=== PATIENT | male | born 1960 | race Two or more races ===

== ENCOUNTER 2019-10-11 13:30 | Emergency (ER) | payer OTHER ==
[~2019-10-11] VITALS: Ht 165.1 cm; Wt 93.0 kg
[2019-10-11 13:42] VITALS: BP 158/94
== END 2019-10-11 14:12 | disposition home or self-care (01) ==
LOC: ER 13:34
DX: M24.512 Contracture, left shoulder (principal)

== ENCOUNTER 2021-05-05 19:20 | Emergency (ER) | payer BC, OTHER ==
[~2021-05-05] VITALS: Ht 165.1 cm; Wt 86.2 kg
--- NOTE | 2021-05-05 19:30 | NUR ---
PT BIBS FOR C/O MID STERNAL CP RATES PAIN 8/10 WITH COMPLAINTS OF HAVING A FEVER, N/V/D SINCE AM. PT TOOK UNKNOWN DOSE OF TYLENOL 3HRS [employer], +SOB, -COUGH. PT ALERT AND ORIENTED X4 AND AMBULATORY, WITH SPONTANEOUS NON LABORED BREATHING.
--- NOTE | 2021-05-05 19:35 | NUR ---
BLOOD AND URINE COLLECTED AND SENT TO LAB.
[2021-05-05] MEDS ORDERED: ACETAMINOPHEN ES 500 MG TABLET ONE (19:40)
--- NOTE | 2021-05-05 19:40 | NUR ---
COVID & INFLUENZA SWAB DONE AND SENT TO LAB.
[2021-05-05 19:52] LABS: BASOPHILS % (AUTO) 0.3 % (0.0-2.0); EOSINOPHILS % (AUTO) 0.3 % (0.0-6.0); HEMATOCRIT 46 % (39-51); HEMOGLOBIN 15.4 g/dL (13.5-17.5); LYMPHOCYTES # (AUTO) 0.9 K/uL (0.8-4.8); LYMPHOCYTES % (AUTO) 5.8 % (20.0-44.0); MEAN CORPUSCULAR HGB CONC 33 g/dl (31.0-36.0); MEAN CORPUSCULAR VOLUME 93 fL (80-96); MONOCYTES # (AUTO) 0.6 K/uL (0.1-1.30); MONOCYTES % (AUTO) 4.3 % (2.0-12.0); NEUTROPHILS # (AUTO) 13.2 K/uL (1.8-8.9); NEUTROPHILS % (AUTO) 89.3 % (43.0-81.0); PLATELET COUNT (AUTO) 287 K/uL (150-450); RED BLOOD CELL COUNT(AUTO) 4.96 MIL/uL (4.5-6.0); WHITE BLOOD COUNT (AUTO) 14.8 K/uL (4.3-11.0)
[2021-05-05] MEDS ORDERED: ACETAMINOPHEN ES 500 MG TABLET PO ONE (20:00)
[2021-05-05 20:03] LABS: CALCIUM, SERUM 8.7 mg/dL (8.5-10.1); CARBON DIOXIDE 25 mmol/L (21-32); CHLORIDE 103 mmol/L (98-107); CREATININE 1.3 mg/dL (0.6-1.3); GLUCOSE 138 mg/dL (74-106); POTASSIUM 3.6 mmol/L (3.5-5.1); SODIUM SERUM 139 mmol/L (136-145); UREA NITROGEN, BLOOD 16 mg/dL (7-18)
[2021-05-05 20:09] LABS: ALANINE AMINOTRANSFERASE 47 U/L (12-78); ALBUMIN 3.8 g/dL (3.4-5.0); ALKALINE PHOSPHATASE 66 U/L (46-116); ASPARTATE AMINOTRANSFERASE 21 U/L (15-37); BILIRUBIN,TOTAL 0.5 mg/dL (0.2-1.0); TOTAL PROTEIN, SERUM 7.9 g/dL (6.4-8.2)
--- NOTE | 2021-05-05 20:16 | NUR ---
PT STATES "PAIN DECREASED TO 4/10".
[2021-05-05 20:29] LABS: BILIRUBIN,URINE Negative (NEGATIVE); COLOR,URINE YELLOW (YELLOW); LEUKOCYTE ESTERASE ,URINE Negative (NEGATIVE); NITRITE, URINE Negative (NEGATIVE); PH,URINE 5.5 (5.0-8.0); PROTEIN,URINE 30 mg/dl (NEGATIVE); UGLUCOSE Negative (NEGATIVE); UROBILINOGEN,URINE 0.2 EU/dL (0.2)
[2021-05-05 20:30] LABS: BACTERIA,URINE Rare /HPF (None Seen); RBC,URINE NONE SEEN /HPF (0-2); SQUAMOUS EPITHELIAL CELL,UR Few /HPF (None Seen); WBC,URINE NONE SEEN /HPF (0-3)
[2021-05-05] MEDS ORDERED: PIPERACILLIN /TAZOBACTAM 3.375 G in IV D5W 50 ML IV ONE (20:30)
[2021-05-05] MEDS ORDERED: IV NS 0.9% 1,000 ML BAG IV ONE (20:30)
[2021-05-05] MEDS ORDERED: PIPERACILLIN /TAZOBACTAM 3.375 G VIAL IV ONE (20:36)
--- NOTE | 2021-05-05 20:42 | NUR ---
PT WENT TO CT.
--- NOTE | 2021-05-05 20:47 | NUR ---
PT RETURNED FROM CT.
[2021-05-05 20:51] LABS: BILIRUBIN,DIRECT 0.1 mg/dL (0.0-0.2)
--- NOTE | 2021-05-05 21:00 | NUR ---
per lab, lactic 2.9
[2021-05-05 21:14] LABS: CREATINE KINASE, TOTAL 107 U/L (39-308); FERRITIN 199 ng/mL (8-388)
[2021-05-05] MEDS ORDERED: IBUP-1957 PO (21:34)
[2021-05-05] MEDS ORDERED: AMOX-430 PO (21:34)
[2021-05-05 21:48] VITALS: BP 147/80
--- NOTE | 2021-05-05 21:50 | NUR ---
Patient discharged to home in stable condition. Written and verbal after care instructions given. Patient verbalizes understanding of instruction and RX. Ambulated out of ED. VSS. IV removed. Catheter intact and site benign. Pressure and 4x4 applied to site. No bleeding noted.
== END 2021-05-05 21:51 | disposition home or self-care (01) ==
LOC: ER 19:24
DX: K52.9 Noninfective gastroenteritis and colitis, unspecified (principal); R50.9 Fever, unspecified; Z20.822 Contact with and (suspected) exposure to COVID-19; E87.2 Acidosis; M47.896 Other spondylosis, lumbar region
CPT/HCPCS: 36415; 71045; 74176; 80053; 81001; 82248; 82550; 82728; 83605 ×2; 83615; 84145; 84484; 85025; 85378; 87040 ×2; 87426; 87804; 93005; 96365; 99285; C9803 ×2; J2543; J7030; J7060; U0003

== ENCOUNTER 2022-06-24 15:09 | Emergency (ER) | payer BC ==
[~2022-06-24] VITALS: Ht 165.1 cm; Wt 85.7 kg
[~2022-06-24 15:09] MED LIST: AMOX-430 PO; IBUP-1957 PO
[2022-06-24] MEDS ORDERED: ACETAMINOPHEN ES 500 MG TABLET PO ONE (16:00)
--- NOTE | 2022-06-24 16:01 | NUR ---
20g started in RFA blood drawn and sent to lab saline lock initated
[2022-06-24 16:09] LABS: BASOPHILS # (AUTO) 0.1 K/uL (0.0-0.2); BASOPHILS % (AUTO) 0.8 % (0.0-2.0); EOSINOPHILS % (AUTO) 3.5 % (0.0-6.0); HEMATOCRIT 45 % (39-51); HEMOGLOBIN 15.3 g/dL (13.5-17.5); LYMPHOCYTES # (AUTO) 3.3 K/uL (0.8-4.8); MEAN CORPUSCULAR HGB CONC 34 g/dl (31.0-36.0); MEAN CORPUSCULAR VOLUME 91 fL (80-96); MONOCYTES % (AUTO) 8.2 % (2.0-12.0); NEUTROPHILS # (AUTO) 7.4 K/uL (1.8-8.9); NEUTROPHILS % (AUTO) 60.5 % (43.0-81.0); PLATELET COUNT (AUTO) 259 K/uL (150-450); RED BLOOD CELL COUNT(AUTO) 4.96 MIL/uL (4.5-6.0); WHITE BLOOD COUNT (AUTO) 12.2 K/uL (4.3-11.0)
[2022-06-24] MEDS ORDERED: ACETAMINOPHEN ES 500 MG TABLET ONE ×2 (16:25→16:37)
[2022-06-24 16:36] LABS: ALANINE AMINOTRANSFERASE 44 U/L (12-78); ALBUMIN 4.3 g/dL (3.4-5.0); ALKALINE PHOSPHATASE 67 U/L (46-116); ASPARTATE AMINOTRANSFERASE 24 U/L (15-37); BILIRUBIN,DIRECT 0.2 mg/dL (0.0-0.2); BILIRUBIN,TOTAL 0.5 mg/dL (0.2-1.0); CALCIUM, SERUM 9.6 mg/dL (8.5-10.1); CARBON DIOXIDE 27 mmol/L (21-32); CHLORIDE 104 mmol/L (98-107); GLUCOSE 96 mg/dL (74-106); POTASSIUM 3.7 mmol/L (3.5-5.1); SODIUM SERUM 138 mmol/L (136-145); TOTAL PROTEIN, SERUM 8.3 g/dL (6.4-8.2); UREA NITROGEN, BLOOD 13 mg/dL (7-18)
[2022-06-24 17:03] LABS: CREATININE 1.3 mg/dL (0.6-1.3)
[2022-06-24 19:43] VITALS: BP 131/70
--- NOTE | 2022-06-24 19:43 | NUR ---
Patient discharged to home in stable condition. Written and verbal after care instructions given. Patient verbalizes understanding of instruction.
== END 2022-06-24 19:43 | disposition home or self-care (01) ==
LOC: ER 15:15
DX: R07.89 Other chest pain (principal); R00.1 Bradycardia, unspecified; I10 Essential (primary) hypertension; E78.00 Pure hypercholesterolemia, unspecified; Z79.899 Other long term (current) drug therapy
CPT/HCPCS: 36415; 71045-TC; 80048-TC; 80076-TC; 84484-TC; 85025-TC

== ENCOUNTER 2024-04-23 16:40 | Emergency (ER) | payer BC, OTHER ==
[~2024-04-23] VITALS: Ht 167.6 cm; Wt 88.5 kg
[2024-04-23] MEDS ORDERED: LIDO28CR2 TP (18:19)
[2024-04-23] MEDS ORDERED: POLY119P PO (18:19)
[2024-04-23 18:29] VITALS: BP 128/67; TEMP 98.7; O2SAT 98
== END 2024-04-23 18:30 | disposition home or self-care (01) ==
LOC: ER 16:48
DX: K60.2 Anal fissure, unspecified (principal); K62.89 Other specified diseases of anus and rectum; I10 Essential (primary) hypertension; E78.00 Pure hypercholesterolemia, unspecified